=== PATIENT | female | born 1945 | race Two or more races ===

== ENCOUNTER 2017-02-14 11:35 | Emergency (ER) | payer MEDICARE, OTHER, MEDICAID ==
[2017-02-14] MEDS: ACETAMINOPHEN 500 MG TAB PO (13:16)
[2017-02-14] MEDS: DEXAMETHASONE 10 MG/ML 1 ML INJ IV (13:16)
[2017-02-14] MEDS: SOD CHLORIDE 0.9% 500 ML IV (13:16)
[2017-02-14] MEDS: CEFTRIAXONE 1 GM/50 ML (PMX) 50 ML IVPB (13:16)
== END 2017-02-14 16:46 | disposition home or self-care (01) ==
LOC: FTE 11:35
DX: K11.20 Sialoadenitis, unspecified (principal); B37.9 Candidiasis, unspecified
CPT/HCPCS: 76536; 96374; 96375; 99285-25